=== PATIENT | male | born 1970 | race Two or more races ===

== ENCOUNTER 2018-07-31 22:51 | Emergency (ER) | payer SELFPAY ==
[~2018-07-31] VITALS: Ht 162.6 cm; Wt 63.5 kg
[2018-07-31 23:21] VITALS: BP 161/90
[2018-08-01] MEDS ORDERED: IBUPROFEN 400 MG TABLET. PO ONE (00:30)
[2018-08-01] MEDS ORDERED: HYDROcodone/APAP 5/325MG 1 TAB TABLET PO ONE (00:30)
--- NOTE | 2018-08-01 00:46 | PHYS DOC ---
Past Medical History Past Medical History: No Pertinent History (ADALBERTO LUNA APRN) Past Surgical History: No Surgical History (ADALBERTO LUNA APRN) Alcohol Use: Occasionally Drug Use: None (ADALBERTO LUNA APRN) Adult General Chief Complaint Chief Complaint: FOOT INJURY PAIN HPI HPI 48-year-old male presents to ER via POV with complaints of right foot injury earlier today at work. Patient states he dropped a piece of metal onto his left foot striking him on his great toe and top of his left foot. Pt reports he has had difficulty walking since the injury. He denies any lt ankle pain or other injury. Pt reports he took a pain relief medication which his girlfriend states is a "[place]i pain reliever". (ADALBERTO LUNA APRN) Review of Systems Review of Systems GI: Denies nausea, vomiting Musculoskeletal: Reports lt foot pain with bruising to lt great toe Integument: Denies abrasions Neurologic: Denies focal weakness or sensory changes. Reports tingling in lt foot w/numbness as swelling increased All other systems were reviewed and found to be within normal limits, except as documented in this note. (ADALBERTO LUNA APRN) Current Medications Current Medications Current Medications Medications (Trade) Dose Ordered Sig/Baljeet Start Time Stop Time Status Last Admin Dose Admin Acetaminophen/ Hydrocodone Bitart (Lortab 5/325) 1 tab 1X ONCE 08/01/18 00:30 08/01/18 00:31 DC 08/01/18 00:02 1 TAB Ibuprofen (Motrin) 800 mg 1X ONCE 08/01/18 00:30 08/01/18 00:31 DC 08/01/18 00:03 800 MG (EULALIA CHAN DO) Allergies Allergies Allergies Coded Allergies Type Severity Reaction Last Updated Verified No Known Drug Allergies 07/31/18 No (EULALIA CHAN DO) Physical Exam Physical Exam Constitutional: Well developed, well nourished, no acute distress, non-toxic appearance. [] HENT: Normocephalic, atraumatic Eyes: Pupils equal, conjunctiva normal, no discharge. [] Neck: Normal range of motion, no tenderness, supple, no stridor. [] Cardiovascular: Heart rate regular Lungs & Thorax: Resp. equal/nonlabored Skin: Warm, dry Extremities: No cyanosis, no clubbing, ROM intact in lt knee/ankle- decreased in lt foot/toes with pt reporting pain with movements2. Swelling dorsal surface lt foot medial to great toe. Bruising to lt great toe nail bed which is <1/4 of toe at base of nail bed- nail is intact. No pain on palp. of calcaneus or malleolus Neurologic: Alert and oriented X 3, normal motor function, normal sensory function, no focal deficits noted. [] Psychologic: Affect normal, judgement normal, mood normal. [] (ADALBERTO LUNA APRN) Current Patient Data Vital Signs Vital Signs Date Time Temp Pulse Resp B/P (MAP) Pulse Ox O2 Delivery O2 Flow Rate FiO2 08/01/18 00:02 97 Room Air 07/31/18 23:21 97.6 97 20 161/90 (113) 97.6 (EULALIA CHAN DO) EKG EKG [] (ADALBERTO LUNA APRN) Radiology/Procedures Radiology/Procedures [] (ADALBERTO LUNA APRN) Radiology/Procedures PROCEDURE: FOOT LEFT 3V 3 views left foot: HISTORY: Pain after injury AP lateral oblique views The visualized osseous structures appear normal. IMPRESSION: No acute findings. Electronically signed by: Zane Licona III, MD (08/01/2018 3:57 AM) [facility] (EULALIA CHAN DO) Course & Med Decision Making Course & Med Decision Making Pertinent Imaging studies reviewed. (See chart for details) 0015: Patient's x-rays were reviewed by Dr. Chan with no obvious displaced fractures. Discussed this with patient and postop shoe was placed to left foot. Patient attempted to ambulate reporting he has too much pain to place weight on his left foot. Will provide patient with crutches. Advised on need to follow-up with orthopedic doctor for reevaluation and further care will provide referral information on discharge paperwork. Will provide small quantity of pain medication with discharge paperwork and patient advised on use of ibuprofen. Rice acronym information will be provided. Education provided on signs and symptoms to return to ER. Discharge instructions were discussed. Patient to follow-up with primary care physician if symptoms persist or with any concerns. (ADALBERTO LUNA APRN) Dragon Disclaimer Dragon Disclaimer This electronic medical record was generated, in whole or in part, using a voice recognition dictation system. (ADALBERTO LUNA APRN) Splinting Splinting : Location: R foot Pre-Made Type: Pre-Proc Neuro Vasc Exam: normal Post-Proc Neuro Vasc Exam: normal, unchanged from pre-exam (EULALIA CHAN DO) Departure Departure Impression: Primary Impression: Crush injury of left foot Disposition: HOME, SELF-CARE Condition: STABLE Referrals: MEGGAN HERNÁNDEZ II, MD Patient Instructions: Cast Shoe, Crush Injury, Fingers or Toes, Crutch Use Additional Instructions: Ice pack to affected area every 3-4 hours for 20-30 minutes. Follow-up with an orthopedic doctor for re-evaluation in 2-3 days. Scripts Hydrocodone/Apap 5-325 (NORCO 5-325 TABLET) 1 Each Tablet 1 TAB PO PRN Q6HRS PRN for PAIN, #8 TAB 0 Refills No driving or drinking alcohol while taking this medication Prov: ADALBERTO LUNA APRN 08/01/18 Attending Signature Attending Signature I have reviewed the PA/POT TENDER's note and plan of care. I was available for consultation as needed during the patient's visit in the emergency department. I agree with the clinical impression, plan, and disposition. (EULALIA CHAN DO) ADALBERTO LUNA APRN Aug 01, 2018 00:46 EULALIA CHAN DO Aug 21, 2018 05:24
[2018-08-01] MEDS ORDERED: HYDR-3164 PO (00:56)
--- NOTE | 2018-08-01 04:00 | RAD ---
3 views left foot: HISTORY: Pain after injury AP lateral oblique views The visualized osseous structures appear normal. IMPRESSION: No acute findings. Electronically signed by: Zane Licona III, MD (08/01/2018 3:57 AM) [facility] [place]
== END 2018-08-01 01:45 | disposition home or self-care (01) ==
LOC: ER 22:51
DX: S97.82XA Crushing injury of left foot, initial encounter (principal); W20.8XXA Other cause of strike by thrown, projected or falling object, initial encounter; Y93.89 Activity, other specified; Y92.89 Other specified places as the place of occurrence of the external cause; Y99.0 Civilian activity done for income or pay
CPT/HCPCS: 29515; 73630; 99283